=== PATIENT | male | born 1950 | race Caucasian/White ===

== ENCOUNTER 2018-11-26 12:49 | Day surgery (SDC) | payer MEDICARE ==
[~2018-11-26] VITALS: Ht 172.7 cm; Wt 77.2 kg
[2018-11-26] MEDS ORDERED: CARV6.25 PO (13:26)
[2018-11-26] MEDS ORDERED: APIX5TAB4 PO (13:27)
[2018-11-26] MEDS ORDERED: HYDR25TA6 PO (13:28)
[2018-11-26] MEDS ORDERED: LISI10TA2 PO (13:30)
[2018-11-26] MEDS ORDERED: TRAZ-96 PO (13:32)
[2018-11-26] MEDS ORDERED: ASPI-191 PO (13:33)
[2018-11-26 13:37] LABS: BASOPHILS # (AUTO) 0.22 x10^3/uL (0-0.1); BASOPHILS % (AUTO) 3 % (0-1); EOSINOPHILS % (AUTO) 0 % (1-7); LYMPHOCYTES # (AUTO) 1.84 x10^3/uL (1-3.4); LYMPHOCYTES % (AUTO) 26 % (22-44); MD NO; MEAN CORPUSCULAR HEMOGLOBIN 30.5 pg (27.5-34.5); MEAN CORPUSCULAR HGB CONC 33.1 g/dL (33.2-36.2); MEAN CORPUSCULAR VOLUME 92.1 fL (81-97); MEAN PLATELET VOLUME 9.9 fL (7.4-10.4); MONOCYTES # (AUTO) 0.56 x10^3/uL (0.2-0.8); MONOCYTES % (AUTO) 8 % (2-9); NEUTROPHILS # (AUTO) 4.55 x10^3/uL (1.8-6.8); NEUTROPHILS % (AUTO) 64 % (42-75); PLATELET COUNT 169 x10^3/uL (130-400); RED BLOOD COUNT 4.83 x10^6/uL (4.38-5.82); RED CELL DISTRIBUTION WIDTH 16.2 % (9.4-14.8)
[2018-11-26] MEDS ORDERED: PREG150C PO (13:37)
[2018-11-26] MEDS ORDERED: MIDAZOLAM 1 MG/ML, 5ML ONE (13:38)
[2018-11-26] MEDS ORDERED: FENTANYL PF 100 MCG/2ML ONE (13:38)
[2018-11-26] MEDS ORDERED: VERAPAMIL 2.5 MG/ML, 2ML ONE (13:38)
[2018-11-26] MEDS ORDERED: LIDOCAINE 2%, 20ML ONE (13:39)
[2018-11-26] MEDS ORDERED: NITROGLYCERIN 5 MG/ML, 10ML ONE (13:39)
[2018-11-26] MEDS ORDERED: MORPHINE PO (13:39)
[2018-11-26] MEDS ORDERED: HEPARIN 1,000 UNITS/ML, 10ML ONE (13:39)
[2018-11-26] MEDS ORDERED: BIVALIRUDIN 250 MG ONE (13:40)
[2018-11-26] MEDS ORDERED: TICAGRELOR 90 MG TABLET ONE (13:40)
[2018-11-26] MEDS ORDERED: OXYC10TA6 PO (13:41)
[2018-11-26 13:47] LABS: ANION GAP 7 mmol/L (5-15); CALCIUM 8.5 mg/dL (8.5-10.1); CHLORIDE 101 mmol/L (98-107); INTERNATIONAL NORMALIZED RATIO 1.1 (0.93-1.1); PROTHROMBIN TIME 11.5 Seconds (9.6-11.5)
[2018-11-26 13:51] VITALS: BP 159/61
[2018-11-26] MEDS ORDERED: TRAZODONE 50MG TABLET PO PRN (17:00)
[2018-11-26] MEDS ORDERED: NICOTINE 21 MG/24 HR PATCH.TD24 TD ONE (17:00)
[2018-11-26] MEDS ORDERED: morphine SULFATE 15 MG TAB.IR PO PRN (17:00)
[2018-11-26] MEDS ORDERED: OXYcodone IR 5MG TABLET PO PRN (17:00)
[2018-11-26] MEDS ORDERED: hydrALAzine 20 MG/ML, 1ML ONE (17:20)
[2018-11-26] MEDS ORDERED: hydrALAzine 20 MG/ML, 1ML IV ONE (17:30)
[2018-11-26] MEDS ORDERED: CARVEDILOL 6.25 MG TABLET PO SCH (18:00)
[2018-11-26] MEDS ORDERED: APIXABAN 5 MG TABLET PO SCH (21:00)
[2018-11-27] MEDS ORDERED: ASPIRIN 81 MG TABLET EC PO SCH (06:00)
[2018-11-27] MEDS ORDERED: HYDROCHLOROTHIAZIDE 25 MG TABLET PO SCH (09:00)
[2018-11-27] MEDS ORDERED: LISINOPRIL 10 MG TABLET PO SCH (09:00)
== END 2018-11-26 18:31 | disposition home or self-care (01) ==
LOC: CACL 12:49 → 5SO 16:02 → CACL 18:31
PROVIDERS: ATTEND Internal Medicine Interventional Cardiology
DX: I25.10 Atherosclerotic heart disease of native coronary artery without angina pectoris (principal); I11.9 Hypertensive heart disease without heart failure; E78.5 Hyperlipidemia, unspecified; I48.91 Unspecified atrial fibrillation; F17.210 Nicotine dependence, cigarettes, uncomplicated; Z72.89 Other problems related to lifestyle; Z79.01 Long term (current) use of anticoagulants; Z79.899 Other long term (current) drug therapy; Z98.1 Arthrodesis status; Z82.3 Family history of stroke; Z82.49 Family history of ischemic heart disease and other diseases of the circulatory system
CPT/HCPCS: 36415; 71046; 80048; 85025; 85610; 85730; 93459; 93567; 99156; 99157; C1769; C1894; J2250; J3010; Q9967; G0378; J0583; J1644; J0360